=== PATIENT | male | born 1965 | race Two or more races ===

== ENCOUNTER 2024-07-12 14:41 | Emergency (ER) | payer MEDICAID, OTHER ==
[~2024-07-12] VITALS: Ht 180.3 cm; Wt 77.1 kg
[2024-07-12] MEDS ORDERED: IBUP-2314 PO (15:19)
[2024-07-12] MEDS ORDERED: CYCL5TAB PO (15:56)
[2024-07-12] MEDS ORDERED: LIDO30AD10 TP (15:56)
[2024-07-12] MEDS ORDERED: METH4TAB3 PO (15:56)
[2024-07-12] MEDS ORDERED: IBUP-1955 PO (15:56)
[2024-07-12] MEDS ORDERED: KETOROLAC TROMETHAMINE 15 MG INJ ONE (15:59)
[2024-07-12] MEDS ORDERED: LIDOCAINE 5% PATCH TD ONE (15:59)
[2024-07-12] MEDS: LIDOCAINE 5% PATCH TD ONE (16:06)
[2024-07-12] MEDS: KETOROLAC TROMETHAMINE 15 MG INJ IM ONE (16:06)
[2024-07-12 16:12] VITALS: BP 140/72; TEMP 98.2; O2SAT 98
== END 2024-07-12 16:13 | disposition home or self-care (01) ==
LOC: ER 14:41
DX: G89.29 Other chronic pain (principal); M48.02 Spinal stenosis, cervical region; Z79.899 Other long term (current) drug therapy; Z88.5 Allergy status to narcotic agent
CPT/HCPCS: 99283; 96372; J1885; A4606; A4663

== ENCOUNTER 2025-01-06 09:44 | Emergency (ER) | payer MEDICAID, OTHER ==
[~2025-01-06] VITALS: Ht 180.3 cm; Wt 77.1 kg
[~2025-01-06 09:44] MED LIST: CYCL5TAB PO; IBUP-1955 PO; IBUP-2314 PO; LIDO30AD10 TP; METH4TAB3 PO
[2025-01-06] MEDS ORDERED: KETOROLAC TROMETHAMINE 30 MG INJ ONE (10:21)
[2025-01-06] MEDS: KETOROLAC TROMETHAMINE 30 MG INJ IM ONE (10:28)
[2025-01-06] MEDS ORDERED: METH-807 PO (11:47)
[2025-01-06] MEDS ORDERED: NAPR500T6 PO (11:47)
[2025-01-06 12:06] VITALS: BP 147/98; TEMP 98.1; O2SAT 99
== END 2025-01-06 12:09 | disposition home or self-care (01) ==
LOC: ER 09:44
DX: S39.012A Strain of muscle, fascia and tendon of lower back, initial encounter (principal); F17.210 Nicotine dependence, cigarettes, uncomplicated; Z59.02 Unsheltered homelessness; Z88.5 Allergy status to narcotic agent; X58.XXXA Exposure to other specified factors, initial encounter; Y93.89 Activity, other specified; Y92.89 Other specified places as the place of occurrence of the external cause; Y99.8 Other external cause status
CPT/HCPCS: 72100; A4606; A4663; J1885